=== PATIENT | male | born 2000 ===

== ENCOUNTER 2020-10-12 13:46 | Inpatient (IN) ==
[2020-10-12] MEDS ORDERED: Lorazepam PYXIS KEY PRN (15:29)
[2020-10-12] MEDS ORDERED: LORazepam 2 mg VIAL 1 ml IM ONE (15:29)
[2020-10-12 15:41] LABS: Urine Appearance Cloudy; Urine Bilirubin Negative (Negative); Urine Blood Negative (Negative); Urine Color Yellow; Urine Glucose Negative (Negative); Urine Ketones Negative (Negative); Urine Nitrite Negative (Negative); Urine Protein 1+(30 mg/dL) (Negative); Urine Specific Gravity 1.029 (1.002-1.030); Urine Urobilinogen Negative (Negative)
[2020-10-12 15:45] LABS: Urine Bacteria Absent (Absent); Urine Red Blood Cell Absent (Absent); Urine White Blood Cell Absent (Absent)
[2020-10-12] MEDS ORDERED: diPHENhydraMINE IV 50 MG/ML 1 ml VIAL (BENADRYL) IM ONE (17:24)
[2020-10-12] MEDS ORDERED: Haloperidol 5 mg/ml SDV IV/IM 5 MG/ML AMP IM ONE (17:24)
[2020-10-12 17:31] LABS: ABS Lymphocytes 0.7 10^3/ul (1.0-4.8); ABS Monocytes 0.7 10^3/ul (0-0.8); ABS Neutrophils 6.7 10^3/ul (1.5-7.7); Hematocrit 40 % (42-52); Hemoglobin 13.9 g/dL (14.0-18.0); Lymphocyte % 8.7 %; Mean Corpuscular HGB Conc 35 g/dL (31-36); Mean Corpuscular Hemoglobin 33 pg (27-31); Mean Corpuscular Volume 95 fL (80-94); Mean Platelet Volume 7.9 fL (7.4-10.4); Platelet Count 228 10^3/uL (150-450); Red Blood Count 4.21 10^6 /uL (4.18-5.48); Red Cell Distribution Width 12 % (10-15); White Blood Count 8.2 10^3/uL (3.5-10.8)
[2020-10-12 18:03] LABS: Albumin 4.9 g/dL (3.2-5.2); Anion Gap 11 mmol/L (2-11); CO2 Carbon Dioxide 22 mmol/L (22-32); Calcium 9.9 mg/dL (8.6-10.3); Chloride 103 mmol/L (101-111); Potassium 3.8 mmol/L (3.5-5.0); Sodium 136 mmol/L (135-145)
[2020-10-12 18:09] LABS: ALT 21 U/L (7-52); AST 49 U/L (13-39); Albumin/Globulin Ratio 2.3 (1-3); Alkaline Phosphatase 71 U/L (35-149); Blood Urea Nitrogen 21 mg/dL (6-24); EGFR African American 131.9 (>60); Globulin 2.1 g/dL (2-4); Glucose 96 mg/dL (70-100)
[2020-10-12 18:19] LABS: Alcohol, S < 10 mg/dL (<10); Salicylate < 2.50 mg/dL (<30)
[2020-10-12 18:20] LABS: Acetaminophen < 15 mcg/mL
[2020-10-12 20:01] LABS: TSH Ultra Thyroid Stim Horm 3.13 mcIU/mL (0.34-5.60)
[2020-10-12] MEDS ORDERED: Al Hydrox/Mg Hydrox/Simet LIQ 30 ML UDC PO PRN (21:38)
[2020-10-13] MEDS: Vitamin THERAPEUTIC TAB PO SCH (11:40)
[2020-10-14] MEDS: Vitamin THERAPEUTIC TAB PO SCH (08:06)
[2020-10-17 08:44] LABS: HDL Cholesterol 57.5 mg/dL
[2020-10-17] MEDS: risperiDONE-M 1 mg Oradis TAB PO SCH (21:27)
[2020-10-18] MEDS: risperiDONE-M 1 mg Oradis TAB PO SCH (19:52)
[2020-11-02 10:49] VITALS: BP 112/61
== END 2020-11-02 12:39 | disposition home or self-care (01) | DRG 750 ==
LOC: ED 13:46 → BSU 21:35
PROVIDERS: ADMIT Psychiatry & Neurology Psychiatry; ATTEND Psychiatry & Neurology Psychiatry